=== PATIENT | male | born 1945 | race Caucasian/White ===

== ENCOUNTER 2024-12-27 07:26 | Emergency (ER) | payer MEDICARE, OTHER, SELFPAY ==
[2024-12-27 07:27] VITALS: BP 163/109
[2024-12-27 08:01] VITALS: BP 129/66; BMI 23.7
[2024-12-27 08:13] LABS: Urine Albumin 2+ (Neg - Trace); Urine Bilirubin Negative (Negative); Urine Character Clear (Clear); Urine Color Yellow; Urine Glucose Negative (Negative); Urine Ketone Negative (Negative); Urine Leukocyte Negative (Negative); Urine Nitrite Negative (Negative); Urine Occult Blood 2+ (Negative); Urine Specific Gravity 1.015 (<1.030); Urine Urobilinogen Negative (Neg - 1+)
[2024-12-27 08:43] LABS: Urine Squamous Cell 0-2 /LPF (Few)
[2024-12-27 08:44] LABS: Urine Bacteria Few (Negative); Urine Sperm Seen
--- NOTE | 2024-12-27 08:49 | ED.GENMED ---
History of Present Illness
General
Chief Complaint: Urinary Symptoms
Source: patient
Exam Limitations: none
Time Seen by Provider: 12/27/24 07:34
History of Present Illness
History of Present Illness:
Patient has not urinated since last night. Lower abdominal pressure. No flank or back pain. No fever. No new lower extremity numbness tingling or weakness. Patient is visiting from [place]
Past History
Past History
ED Past Medical History: HTN
ED Past Surgical History: Appendectomy, Orthopedic and Other (Vascular)
Review of Systems
Review of Systems
All Other Systems: Not applicable
Constitutional: Denies fever or chills
Phy Exam
Physical Exam
Physical Exam:
GENERAL: Alert and oriented in no apparent distress
EYE: Orbits normal.
CARDIAC: Regular rate and rhythm without any obvious murmurs.
LUNGS: Clear breath sounds,normal
ABDOMEN: Soft, suprapubic fullness and mild tenderness. No rebound or guarding no mass or hernia.
NEUROLOGICAL: Alert and oriented , grossly non-focal. Good lower extremity strength. Plantar dorsiflexion normal. Reflexes normal.
SKIN: Warm and dry, no rash or lesion, no discoloration, skin intact.
MUSCULOSKELETAL: No edema,no deformity.Good color
PSYCH: Normal and appropriate interaction.
Course
Orders/Labs/Results
Orders:
Orders
12/27/24 07:39
Prince Placement- Treatment ONCE
Reason for insertion: Acute Retention
12/27/24 08:05
Urinalysis Reflex To Culture Urgent
Date Specimen was Collected: 12/27/24
Time Specimen was Collected: 07:56
Urine Microscopic Reflex Cult Urgent
Abnormal Lab Results
12/27/24
08:05
Ur Occult Blood Reflex 2+ A
(Negative)
Urine RBC 11-15 A /HPF
(0-2)
Urine Bacteria (Reflex) Few A
(Negative)
Urine Albumin (Reflex) 2+ A
(Neg - Trace)
Vital Signs
Initial and Last Documented VS:
Initial Vital Signs
Temp Pulse Resp BP Pulse Ox
97.8 F 89 16 163/109 98
12/27/24 07:27 12/27/24 07:27 12/27/24 07:27 12/27/24 07:27 12/27/24 07:27
Last Documented Vital Signs
Temp Pulse Resp BP Pulse Ox
97.8 F 66 16 129/66 96
12/27/24 07:27 12/27/24 08:01 12/27/24 08:01 12/27/24 08:01 12/27/24 08:01
MDM/Problems Addressed
Differential Diagnosis Includes:
Urinary retention. Likely prostate related. Nothing to support a neurologic issue. Prince catheter placed. Prince will be left in the follow-up. No infectious issues
*Pulse Oximetry
Patient hypoxic: no
*Critical Care Note
Total Time (30-74mins, 75-104mins- exclusive of procedures): Not Applicable
Update Note
Update Note:
800 cc. Patient in no distress. Is supposed to be on tamsulosin but has not been taking regularly. Patient will restart
ED Attending Note
-
Portions of this chart may have been created with voice recognition software.� Occasional wrong word or��sound alike� substitutions may have occurred due to the inherent limitations of voice recognition software.
Discharge Plan
Departure
Patient Disposition: Home (Routine Discharge)
Date of Disposition: 12/27/24
Time of Disposition: 08:49
Patient with high blood pressure during this ER visit?: Yes
Discharge Problem:
Urinary retention
Instructions: How to Care for Your Prince Catheter, Male, Urinary retention - Discharge instructions, BLOOD PRESSURE
Referrals:
Stanislav Gonzales MD [Family Provider] -
Activity Restrictions/Additional Instructions:
Restart your prostate medication
As we discussed, call your primary doc today in [place] to set up urologic follow-up next week
Interventions
Interventions:
*Risk Screen - Suicide Last Done: 12/27/24 07:27
*General Assessment Last Done: 12/27/24 08:01
*Neglect/Abuse Screening Last Done: 12/27/24 07:27
*ED- Fall Risk Assessment Last Done: 12/27/24 08:01
*ED COVID-19 Vaccine History Last Done: 12/27/24 08:01
ED-Male Genitourinary Assessment Last Done: 12/27/24 08:01
Discharge Date and Time
Print Language: CROATIAN
== END 2024-12-27 09:27 | disposition home or self-care (01) ==
LOC: EMR 07:26
PROVIDERS: EMERGENCY PHYSICIAN Emergency Medicine; FAMILY PHYSICIAN Internal Medicine Endocrinology, Diabetes & Metabolism
DX: R33.9 Retention of urine, unspecified (principal); I10 Essential (primary) hypertension; Z90.49 Acquired absence of other specified parts of digestive tract
CPT/HCPCS: 99282; 81003; 81015